=== PATIENT | female | born 1995 | race African-American/Black ===

== ENCOUNTER 2024-07-06 22:29 | Emergency (ER) | payer OTHER, MEDICAID, SELFPAY ==
[2024-07-06 22:34] VITALS: BP 128/85; PULSE 88; RESP 16; TEMP 36.6; O2SAT 98; BMI 38.4
--- OUTSIDE RECORDS SUMMARY | 2024-07-06 23:33 | XMS_ITS | Clinical Summary ---
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 Arabic, Mediterranean, or background): MCV less than 80: No Neural tube defect (Meningomyelocele, Spina bifida, or Anencephaly): No Congenital heart defect: No Down syndrome: No Floyd-Sachs (Ashkenazi Jain, Cajun, Chinese [place]): No Oumou disease (Ashkenazi Jain): No Familial dysautonomia (Ashkenazi Jain): No Sickle cell disease or trait (): No Hemophilia or other blood disorders: No Muscular dystrophy: No Cystic fibrosis: No [place]'s chorea: No Intellectual disability and/or autism: No Other inherited genetic or chromosomal disorder: No Maternal metabolic disorder (eg. Type 1 diabetes, PKU): No Patient or baby's father had child with defects not listed above: No Recurrent loss, or a stillbirth: No Medications (including supplements, vitamins, herbs, or OTC drugs)/illicit/recreational drugs/alcohol since last menstrual period: No CURRENT MEDICATIONS: Current Outpatient Medications Medication Sig blood sugar diagnostic (Blood Glucose Test) strip Test 1 times per day. blood-glucose meter Glucometer covered by patient insurance. EPINEPHrine (EpiPen) 0.3 mg/0.3 mL injection Inject 0.3 mg intramuscular one time if needed for Allergic Reaction for up to 1 dose. Emerging Travelyle Christine 3 Plus Sensor for continuous blood glucose monitor (CGM) As directed 1 Each one time. To be used to read blood sugars, follow global consumer sector vice president directions. lancets As directed. Test 1 times per day. metFORMIN 500 mg tablet Take 500 mg by mouth two times daily. vit [id number] ( Vitamin) 27 mg iron- 800 mcg tab Take by mouth. No current facility-administered medications for this visit. Medications have been reviewed by me and are current to the best of my knowledge and ability. ALLERGIES: Crab, Lobster, Shrimp, Dog dander, and Milk OBJECTIVE: LMP 04/21/2024 (Exact Date) Yes No results found for: PREGURINE ASSESSMENT/PLAN: ICD-10-CM 1. Supervision of high risk , unspecified, first trimester (HC) O09.91 EDUCATION/PATIENT INSTRUCTIONS - Advised patient to start/continue vitamin. - Discussed risk of using alcohol, tobacco, other drugs in . - Discussed healthy lifestyle in . - Provided copy of Beginnings book and book inserts, discussed [id number] medications, and follow up. - Encouraged patient to call clinic at [phone] with any vaginal bleeding, fluid leaking from vagina, severe abdominal pain, nausea with severe vomiting, fever higher than 100.4F, painful urination, headache not relieved by Tylenol, or other concerns - labs completed with today's visit. - Patient informed to schedule 1st trimester dating ultrasound between 7-10 weeks. - Initial OB appointment with FP/OB scheduled. COVID-19 vaccine discussion to be completed at this visit. Future Appointments Date Time Provider Department Center 07/17/2024 10:00 AM [facility] Marisol Leggett RN .................... 06/20/2024 1:37 PM Last Filed Vital Signs Vital Sign Reading Time Taken Comments Blood Pressure 100/60 06/10/2023 9:16 AM CDT Pulse 77 06/10/2023 9:16 AM CDT Temperature 36.5 C (97.7 F) 04/29/2023 9:09 AM CDT Respiratory Rate 16 04/29/2023 9:09 AM CDT Oxygen Saturation 95% 04/29/2023 9:09 AM CDT Inhaled Oxygen Concentration - - Weight 111.2 kg (245 lb 3.2 oz) 06/20/2024 1:30 PM CDT Height 169 cm (5' 6.54) 06/20/2024 1:30 PM CDT Body Mass Index 38.94 06/20/2024 1:30 PM CDT Plan of Treatment Upcoming Encounters Date Type Department Care Team (Late st Contact Info) Description 07/17/2024 10:00 AM CDT OB Encounter [facility] [address] [place] [address] Ann-Marie Wright MD [address] [place] [address] Health Maintenance Due Date Last Done Comments BMI (ht and wt on same day) for age 18+ 06/09/2024 06/10/2023, 10/01/2022, 01/23/2022, Additional history exists Influenza Vaccine (Season Ended) 2024 11/23/2022, 01/20/2022, 12/30/2021, Additional history exists RSV vaccine for adults or (1 - Risk 1-dose series) 12/01/2024 Depression screening for age 12+ 06/20/2025 06/21/19 25 Pap test for age 21-65 01/23/2027 , 01/23/2022, 01/29/2019 (Completed outside of [facility]) Tetanus booster 04/03/2030 04/03/2020, 09/16, 02/15/2011, Additional history exists Hepatitis B series for 19+ Completed 05/03, 11/12/2011, 10/09/2011 Tdap Completed 04/03/2020, 09/16, 02/15/2011 Pneumococcal series for age 6-49 Completed 08/13/19 23 COVID-19 vaccine series Completed 06/07/19, 09/18/2021, 08/13/2020, Additional history exists HIV for age 15-65 Completed 06/20/2024, , 11/23/2019 Hepatitis C screening for ag e 18-79 Completed 06/20/2024, 10/26/2022, 11/23/2019 Goals Goal Patient Goal Type Associated Problems Recent Progress Patient-Stated? Author Food - Increase security Diet No Joe Pina Note: Goal identified during: Initial Screening Status: Resolved, Result: Resolved Barriers to goal achievement: low income and DHS error on application Patient steps toward goal achievement: wait for call back from [facility] now that it is escalated Navigator steps to support goal achievement: check back Wednesday after 10am to confirm problem resolved Proposed timeline for goal completion: 1 month Notes: patient is now familiar with food shelf resources and is not eligible for SNAP due to spouse income being too high Date of follow up: NA Transportation - Increase reliability General No Joe Pina Note: Goal identified during: Initial Screening Status: Resolved, Result: Resolved Barriers to goal achievement: low income Patient steps toward goal achievement: [facility] Navigator steps to support goal achievement: talk juan about barriers and needs Proposed timeline for goal completion: 1 month Notes: client expressed no longer having trouble with this need Date of follow up: NA Procedures Procedure Name Priority Date/Time Associated Diagnosis Comments US OB 1ST TRI SINGLE TA Routine 07/05/2024 1:07 PM CDT Supervision of high risk , unspecified, first trimester (HC) TYPE & SCREEN Routine 06/20/2024 2:23 PM CDT Supervision of high risk , unspecified, first trimester (HC) TREPONEMA PALLIDUM Routine 06/20/2024 2: 23 PM CDT Supervision of high risk , unspecified, first trimester (HC) URINE CULTURE Routine 06/20/2024 2:23 PM CDT Supervision of high risk , unspecified, first trimester (HC) ANTI HIV 1/2 Routine 06/20/2024 2:23 PM CDT Supervision of high risk , unspecified, first trimester (HC) RUBELLA IMMUNE STATUS Routine 06/20/2024 2:23 PM CDT Supervision of high risk , unspecified, first trimester (HC) HBSAG (HBS) Routine 06/20/2024 2:23 PM CDT Supervision of high risk , unspecified, first trimester (HC) ANTI HCV Routine 06/20/2024 2:23 PM CDT Supervision of high risk , unspecified, first trimester (HC) HPV HIGH RISK Routine 01/23/2022 1:30 PM MACHINE BENDER Cervical cancer screening from Last 3 Months or Most Recently Relevant to Health Maintenance Results * US 1ST TRIMESTER (< 14 weeks) [77045.0] (07/05/2024 1:07 PM CDT) Anatomical Region Laterality Modality , 1ST TRIMESTER Ultrasound 07/05/2024 3:03 PM CDT Impressions 07/05/2024 3:03 PM CDT Normal first trimester OB ultrasound exam. Gestational age calculated at 8 weeks 0 days with a sonographic due date of 02/14/2025. Dictated by Flash Cristina MD @ 07/05/2024 3:03:12 PM (Electronically Signed) Narrative 07/05/2024 3:03 PM CDT For Patients: As a result of the Cures Act, medical imaging exams and procedure reports are released immediately into your electronic medical record. You may view this report before your referring provider. If you have questions, please contact your health care provider. INDICATION: First trimester scan, establish dates. COMPARISON: None. TECHNIQUE: Real-time manrique-scale imaging of the pelvis was performed transabdominal. FINDINGS: Sonographic imaging demonstrates a single living intrauterine gestation. The embryo demonstrates a regular cardiac rate measuring 161 beats per minute. The embryo`s crown-rump length measurement of 1.5 cm corresponds to a gestational age of 8 weeks 0 days with a sonographic due date of 02/14/2025. There is a normal-appearing yolk sac. There are no gross abnormalities noted within the embryo at this early state of development. The gestational sac has a normal appearance. There is no evidence of a perigestational hemorrhage. The amount of fluid within the sac appears appropriate for gestational age. The cervix is closed. The myometrium appears normal. The ovaries are of normal size. There are no suspicious fluid collections noted in the cul-de-sac. Procedure Note Flash Cristina MD - 07/05/2024 For Patients: As a result of the Cures Act, medical imagingexams and procedure reports are released immediately into your electronicmedical record. You may view this report before your referring provider.If you have questions, please contact your health care provider. INDICATION: First trimester scan, establish dates. COMPARISON: None. TECHNIQUE: Real-time manrique-scale imaging of the pelvis was performed transabdominal. FINDINGS: Sonographic imaging demonstrates a single living intrauterine gestation.The embryo demonstrates a regular cardiac rate measuring 161 beats perminute. The embryo`s crown-rump length measurement of 1.5 cm correspondsto a gestational age of 8 weeks 0 days with a sonographic due date of02/14/2025. There is a normal-appearing yolk sac. There are no grossabnormalities noted within the embryo at this early state of development.The gestational sac has a normal appearance. There is no evidence of aperigestational hemorrhage. The amount of fluid within the sac appearsappropriate for gestational age. The cervix is closed. The myometrium appears normal. The ovaries are ofnormal size. There are no suspicious fluid collections noted in [id number]-[id number]. IMPRESSION: Normal first trimester OB ultrasound exam. Gestational age calculated at8 weeks 0 days with a sonographic due date of 02/14/2025. Dictated by Flash Cristina MD @ 07/05/2024 3:03:12 PM (Electronically Signed) us Ann-Marie Wright MD Final Resul t * TREPONEMA PALLIDUM (06/20/2024 2:23 PM CDT) TREPONEMA PALLIDUM Non-Reacti ve Non-Reacti ve 06/20/2024 11:00 PM CDT [facility] Blood BLOOD SPECIMEN / Unknown [facility] / Unknown 06/20/2024 2:23 PM CDT 06/20/2024 2:23 PM CDT Ann-Marie Wright MD SEND OUTS Final Resul t [facility] [address] [place] [address], * RUBELLA IMMUNE STATUS (06/20/2024 2:23 PM CDT) Pathologist [facility] RUBELLA AB (IGG), IMMUNE STATUS 2.38 Index [facility] Comment: Index Interpretation ----- <0.90 Not consistent with immunity 0.90-0.99 Equivocal > or = 1.00 Consistent with immunity The presence of rubella IgG antibody suggests immunization or past or current infection with rubella virus. Blood BLOOD SPECIMEN / Unknown 06/20/2024 2:23 PM CDT 06/20/2024 2:24 PM CDT Ann-Marie Wright MD SEND OUTS Final Resul t Performing Organization Address City/[facility] Co de Phone Number [facility] [address] [place] [address], [facility] [address] [place] [address] * TYPE AND SCREEN (06/20/2024 2:23 PM CDT) Pathologist [facility] ABORH A Rh Positive 06/21/2024 12:47 AM CDT [facility] B[facility] ANTIBODY SCREEN Negative Negative 06/21/2024 12:47 AM CDT [facility] B[facility]OD BANK SPECIMEN EXPIRATION DATE/TIME 06/23/24 23:59 06/21/2024 12:47 AM CDT [facility] Blood BLOOD SPECIMEN / Unknown [facility] / Unknown 06/20/2024 2:23 PM CDT 06/20/2024 2:23 PM CDT us Ann-Marie Wright MD BLOOD BANK Final Resul t [facility]OD BANK [address] [place] [id number], * HBSAG (HBS) (06/20/2024 2:23 PM CDT) HEPATITIS B SURFACE ANTIGEN NON-REACTI VE NON-REACTI VE [facility] Comment: For additional information, please refer to http://education.Acertiv/faq/PFW729 (This link is being provided for informational/ educational purposes only.) Blood BLOOD SPECIMEN / Unknown 06/20/2024 2:23 PM CDT 06/20/2024 2:24 PM CDT Ann-Marie Wright MD SEND OUTS Final Resul t Performing Organization Address City/[facility]/ZIP Co de Phone Number [facility] [address] [place] [address], [place] [phone] [facility] [address] [place] [address] * URINE CULTURE (06/20/2024 2:23 PM CDT) CULTURE <10,000 CFU/mL multiple organisms 06/22/2024 12:32 PM CDT [facility] Urine URINE SPECIMEN / Unknown Non-Blood / Unknown 06/20/2024 2:23 PM CDT 06/20/2024 2:23 PM CDT us Ann-Marie Wright MD MICROBIOLOGY Final Resul t [facility] [address] [place] [address], * ANTI HCV (06/20/2024 2:23 PM CDT) HEPATITIS C ANTIBODY NON-REACTI VE NON-REACT HARPER [facility] Comment: HCV antibody was non-reactive. There is no laboratory evidence of HCV infection. In most cases, no further action is required. However, if recent HCV exposure is suspected, a test for HCV RNA (test code 88789) is suggested. For additional information please refer to http://[employer].Acertiv/faq/QUG84p9 (This link is being provided for informational/ educational purposes only.) Blood BLOOD SPECIMEN / Unknown 06/20/2024 2:23 PM CDT 06/20/2024 2:24 PM CDT us Ann-Marie Wright MD SEND OUTS Final Resul t [facility] [address] [place] [address], [facility] [address] [place] [address] * ANTI HIV 1/2 (06/20/2024 2:23 PM CDT) Pathologist [facility] HIV AG/AB, 4TH GEN NON-REACT HARPER NON-REACT HARPER [facility] Comment: HIV-1 antigen and HIV-1/HIV-2 antibodies were not detected. There is no laboratory evidence of HIV infection. PLEASE NOTE: This information has been disclosed to you from records whose confidentiality may be protected by state law. If your state requires such protection, then the state law prohibits you from making any further disclosure of the information without the specific written consent of the person to whom it pertains, or as otherwise permitted by law. A general authorization for the release of medical or other information is NOT sufficient for this purpose. For additional information please refer to http://[employer].Acertiv/faq/YVJ945 (This link is being provided for informational/ educational purposes only.) The performance of this assay has not been clinically validated in patients less than 2 years old. Blood BLOOD SPECIMEN / Unknown 06/20/2024 2:23 PM CDT 06/20/2024 2:24 PM CDT Ann-Marie Wright MD SEND OUTS Final Resul t Performing Organization Address City/[facility]/ZIP Co de Phone Number [facility] [address] [place] [address], [facility] [address] [place] [address] * HPV HIGH RISK (01/23/2022 1:30 PM MACHINE BENDER) TYPE 16 Negative Negative 01/27/2022 5:07 PM MACHINE BENDER [facility] TYPE 18 Negative Negative 01/27/2022 5:07 PM MACHINE BENDER [facility] OTHER HIGH RISK TYPES Negative Negative 01/27/2022 5:07 PM MACHINE BENDER [facility] Other (Cervical) Non-Blood / Unknown 01/23/2022 1:30 PM MACHINE BENDER 01/26/2022 2:44 PM MACHINE BENDER Narrative [facility] - 01/27/2022 5:07 PM MACHINE BENDER HPV types 16, 18, 31, 33, 35, 39, 45, 51, 52, 56, 58, 59, 66 and 68 DNA were undetectable or below the pre-set threshold. Methodology: Israel Ronda 4800 HPV Test us Lynn Soliz SAND MILL OPERATOR MICROBIOLOGY Final Re sult [facility] [address] [place] [address], [place] from Last 3 Months or Most Recently Relevant to Health Maintenance Insurance [facility] Advance Directives * Full Code (Latest Code Status on File) Date Activated Date Inactivated Comments 04/26/2023 7:58 PM 04/29/2023 2:39 PM Question Answer Comments Code Status Discussion: Reviewed Preferences * Full Code Date Activated Date Inactivated Comments 06/15/2020 6:26 PM 06/18/2020 1:41 PM Question Answer Comments Code Status Discussion: Not Discussed Care Teams Planning Director Relationship Specialty Start Date End Date Lynn Soliz SAND MILL OPERATOR [address] [place] [address] PCP - General Nurse Practitioner - Family 12/12/20 Thuy Angel RN Tribal Council Member Registered Nurse 05/20/20 Flash Saez MD [address] [place] [address] [address] Referring Provider Obstetrics and Gynecology 10/26/22
--- NOTE | 2024-07-06 23:52 | ED_ITS ---
HPI - General Adult General Chief complaint: Abdominal Pain Stated complaint: Left abdominal pain, 8 weeks , type 2 DM Time Seen by Provider: 07/06/24 22:44 History of Present Illness HPI narrative: This 29-year-old female comes in reporting pain in her left lower anterior ribs that started this afternoon. She states that the pain is rather constant and is reproduced with certain positions and maneuvers. She does not report any injury event or strenuous activity recently. She states that she is 8 weeks . She did have an ultrasound yesterday showing and intrauterine gestational sac. She does not report any shortness of breath. Related Data Home Medications ?Medication ?Instructions ?Recorded ?Confirmed metformin 500 mg tablet 500 mg PO BID 07/06/2407/06 Previous Rx's ?Medication ?Instructions ?Recorded ketorolac 10 mg tablet 10 mg PO TID 5 days #15 tabs 07/06/24 Allergies Allergy/AdvReac Type Severity Reaction Status Date / Time shellfish derived Allergy Rash Verified 07/06/24 22:41 Review of Systems Status of ROS: Reports: 10 or more systems reviewed and unremarkable except as noted in History and below Narrative: Constitutional: No fevers, no weight gain or loss. Eyes: No discharge. No vision changes. HENT: No congestion, no sore throat, no ear pain. Cardiovascular: No palpitations. Respiratory: No shortness of breath, no wheezes, no cough. Gastrointestinal: No abdominal pain, no vomiting, no diarrhea. Genitourinary: No dysuria, no hematuria. Musculoskeletal: Normal range of motion. Skin: No rashes, no pruritis. Neurological: No dizziness, weakness, sensory change, speech change. Endo/Heme/Allergies: No bruising or bleeding. No polydipsia. Pysch: no suicidality, no anxiety, no insomnia. All other systems reviewed and are negative. Exam Narrative: Exam Narrative: Constitutional: Well-developed, well-nourished, no acute distress. HEENT: Normocephalic, atraumatic. Neck: Normal range of motion. Nontender. Supple. Heart: Regular. No murmurs. Normal rate. Intact distal pulses. Lungs: Clear to auscultation. No wheezes, rhonchi, or rales. Chest: Reproducible pain in the left lower anterior ribs. Abdomen: Normal bowel sounds. Nontender. No rebound tenderness. Genitalia: Deferred. Back: No midline tenderness. Normal range of motion. Extremities: Normal range of motion. No injury. Skin: Intact. No rash. Warm. No erythema or pallor. Neurologic: No altered sensation. No weakness. Alert and oriented. Psychiatric: No suicidality. No anxiety or depression. No insomnia. Nursing notes and vitals signs are reviewed. Const: Vital Signs, click to edit/add: Vital Signs - 24 hr 07/06/24 22:34 Temperature 98 F Pulse Rate [Pulse Oximeter] 88 Respiratory Rate 16 Blood Pressure [Le ft Upper Arm] 128/85 Pulse Oximetry 98 Oxygen Delivery Me thod Room Air Course Vital Signs Vital signs: Initial Vital Signs Temperature 98 F 07/06/24 22:34 Temperature Source Temporal Artery Scan 07/06/24 22:34 Pulse Rate 88 07/06/24 22:34 Respiratory Rate 16 07/06/24 22:34 Blood Pressure 128/85 07/06/24 22:34 Blood Pressure Mean 99 07/06/24 22:34 Blood Pressure Position Sitting 07/06/24 22:34 Pulse Oximetry 98 07/06/24 22:34 Oxygen Delivery Method Room Air 07/06/24 22:34 Vital Signs Temperature 98 F 07/06/24 22:34 Pulse Rate 88 07/06/24 22:34 Respiratory Rate 16 07/06/24 22:34 Blood Pressure 128/85 07/06/24 22:34 Pulse Oximetry 98 07/06/24 22:34 Oxygen Delivery Method Room Air 07/06/24 22:34 Temperature 98 F 07/06/24 22:34 Pulse Rate 88 07/06/24 22:34 Respiratory Rate 16 07/06/24 22:34 Blood Pressure 128/85 07/06/24 22:34 Pulse Oximetry 98 07/06/24 22:34 Oxygen Delivery Method Room Air 07/06/24 22:34 Discharge Plan Discharge Clinical Impression: Acute chest wall pain, Patient Disposition: Home, Self-Care Condition: Unchanged Additional Instructions: Take medication as prescribed and needed. Follow up with primary physicians as scheduled and needed. Return if worsening. Prescriptions: New ketorolac 10 mg tablet 10 mg PO TID 5 Days Qty: 15 0RF No Action metformin 500 mg tablet 500 mg PO BID Follow Up/Referrals: Provider,Not a Local [Primary Care Provider, Family Practice] Stand Alone Forms: [facility] Info Instructions Procedures Ultrasound Other exam #1: Anatomical areas examined: Left lower anterior ribs, trans abdominal pelvic assessment of . Indications: Left lower rib pain. Exam type: focused emergency ultrasound Description/findings: Left upper quadrant of the abdomen and left lower anterior ribs appear normal. Intrauterine appears to be appropriate for 8 weeks gestation. Impression: Intrauterine . Negative exam otherwise.
== END 2024-07-07 00:02 | disposition home or self-care (01) ==
PROVIDERS: Emergency Provider Emergency Medicine Emergency Medical Services
DX: R07.89 Other chest pain (principal); Z3A.08 8 weeks gestation of pregnancy
CPT/HCPCS: 76857; 99283; 99284

== ENCOUNTER 2025-01-29 16:42 | Outpatient (CLI) | payer OTHER, MEDICAID, SELFPAY ==
[2025-01-29 17:03] VITALS: BP 125/82; PULSE 86; PULSE 88; PULSE 93; O2SAT 94; O2SAT 97
[2025-01-29 17:08] VITALS: PULSE 90; O2SAT 97
[2025-01-29 17:13] VITALS: PULSE 93; O2SAT 98
--- NOTE | 2025-01-29 19:45 | PC.OBNST ---
NST Note NST Note Start: 01/29/25 16:54 Freq: ONCE Status: Active Protocol: Document 01/29/25 19:45 ALZ (Rec: 01/29/25 19:45 ALZ No Response) NST Note 3 Para (# of births) 2 EDC 02/14/25 Gestational Age In 37 Weeks & 5 Days Weeks & Days High Risk Factors Diabetes - Preexisting Type II Oral Hypoglycemics Patient Presented Contractions/cramping with Complaint(s) of Reactive Yes Appropriate for Yes Gestational Age DARELL Barakat RN Date 01/29/25 Reactive Yes Appropriate for Yes Gestational Age DARELL Kauffman RNC Date 01/29/25 OB NST charge Yes Complete NST Note Yes via Write Note The provider's electronic signature indicates the NST is reactive/appropriate for gestational age. *Note to provider: If an addendum is required, open the patient's chart and click on the note under the Nurse/Allied Health tab.
== END 2025-01-29 19:45 | disposition home or self-care (01) ==
LOC: OB OUT 16:43 → OB 16:47
PROVIDERS: Visit Provider Family Medicine
DX: O36.8330 Maternal care for abnormalities of the fetal heart rate or rhythm, third trimester, not applicable or unspecified (principal); O24.419 Gestational diabetes mellitus in pregnancy, unspecified control; Z3A.37 37 weeks gestation of pregnancy
CPT/HCPCS: 59025; G0463; A9270; J2270

== ENCOUNTER 2025-01-30 11:49 | Outpatient (CLI) | payer OTHER, MEDICAID, SELFPAY ==
[2025-01-30 12:00] VITALS: PULSE 95; O2SAT 98
[2025-01-30 12:05] VITALS: PULSE 93; O2SAT 97
[2025-01-30 12:08] VITALS: BP 119/72; PULSE 77; RESP 18; TEMP 36.8
[2025-01-30 12:10] VITALS: PULSE 87; O2SAT 98
[2025-01-30] MEDS: INSULIN ASPART 100 UNIT/ML 35 UNIT SUBCUT (13:46)
[2025-01-30 15:08] VITALS: PULSE 98; O2SAT 99
[2025-01-30 16:04] VITALS: BP 106/64; PULSE 88; PULSE 90; RESP 18; TEMP 36.4; O2SAT 95
--- NOTE | 2025-01-30 17:50 | PC.OBNST ---
NST Note NST Note Start: 01/30/25 11:56 Freq: ONCE Status: Active Protocol: Document 01/30/25 16:45 SRV (Rec: 01/30/25 17:41 SRV [id number]) NST Note 3 Para (# of births) 2 EDC 02/14/25 Gestational Age In 37 Weeks & 6 Days Weeks & Days High Risk Factors Diabetes - Preexisting Type II Insulin Patient Presented Other with Complaint(s) of Other Complaints Deceleration in clinic and BPP 07/23. In triage for 4 hours of monitoring Reactive Yes Appropriate for Yes Gestational Age DARELL Haider Date 01/30/25 Reactive Yes Appropriate for Yes Gestational Age DARELL Martínez Date 01/30/25 OB NST charge Yes Complete NST Note Yes via Write Note The provider's electronic signature indicates the NST is reactive/appropriate for gestational age. *Note to provider: If an addendum is required, open the patient's chart and click on the note under the Nurse/Allied Health tab.
== END 2025-01-30 17:10 | disposition home or self-care (01) ==
LOC: OB OUT 11:50 → OB 11:50
PROVIDERS: Visit Provider Family Medicine
DX: O36.8330 Maternal care for abnormalities of the fetal heart rate or rhythm, third trimester, not applicable or unspecified (principal); O24.419 Gestational diabetes mellitus in pregnancy, unspecified control; Z3A.37 37 weeks gestation of pregnancy
CPT/HCPCS: 59025; 82962; G0463

== ENCOUNTER 2025-02-06 16:39 | Inpatient (IN) | payer OTHER, MEDICAID, SELFPAY ==
[2025-02-06 16:53] VITALS: BMI 40.5
[2025-02-06 17:24] VITALS: BP 127/84; PULSE 74; RESP 18; TEMP 36.8
--- NOTE | 2025-02-06 17:45 | PM.OBHPLI ---
OB - H&P: HPI Labor/Induction History of Present Illness Time Seen by Provider: 17:45 Date Seen: 02/06/25 Chief Complaint: The patient is a 29 year old 3 para 2001 at 38.6 weeks gestation by LMP and consistent with 8 week ultrasound who presents for IOL for type 2 diabetes, obesity. Chief complaint: Type 2 DM : 3 Para: 2 Narrative: Marcia Eastman is a 29 year old female who presents for IOL for pregestational type 2 diabetes, obesity in . Patient is managed at the [facility] for her diabetes management. 30 units NPH in am, 8 units in PM 35, 40, 40 units of novolog for meals. She has had fair control, stating she is only high when she eats things she shouldn't. Weight gain has been 17 lbs States she is diet controlled when not . Is also on metformin bid She did have cake right before arriving for IOL. EFW 72 percentile, Abdominal circumference 96th percentile She has had some contractions, otherwise felt well. No headache, vision changes. no significant edema. History of Present Dating criteria: based on LMP (consistent with 8 week ultrasound) care: good care Ultrasounds: normal 1st trimester US and normal mid trimester US Abnormal ultrasound findings: Growth ultrasound: EFW 72 percentile, Abdominal circumference 96th percentile complications comment: type 2 diabetes Labs Blood type: A (+) positive Rubella: immune RPR/VDLR: nonreactive GBS status: negative HBsAG: negative Review of Systems Status of ROS: Reports: 10 or more systems reviewed and unremarkable except as noted in History and below Meds Home Medications and Allergies Home Medications ?Medication ?Instructions ?Recorded ?Confirmed ?Type metformin 500 mg tablet 500 mg PO BID 07/06/24 02/06/25 History aspirin 81 mg capsule 81 mg PO DAILY 01/29/25 02/06/25 History famotidine 10 mg tablet 10 mg PO .PRN 01/29/25 02/06/25 History magnesium 1 tab PO DAILY 01/29/25 02/06/25 History Vitamin 1 cap PO DAILY 01/30/25 02/06/25 History insulin aspart U-100 100 unit/mL 35 unit subcut AC 01/30/25 02/06/25 History (3 mL) subcutaneous pen Allergies Allergy/AdvReac Type Severity Reaction Status Date / Time shellfish derived Allergy Rash Verified 02/06/25 17:38 OB - H&P: Exam Physical Exam: Vital signs: Pulse BP 74 127/84 02/06/25 17:24 02/06/25 17:24 Constitutional: Constitutional: no acute distress Routine HEENT Exam: Head: Present atraumatic Routine Neck Exam: Neck: Present full ROM Detailed Neck Exam: Thyroids: Thyroid: Present normal Detailed Chest Wall Exam: Chest wall: Present increased AP diameter Routine Respiratory Exam: Respiratory: Present CTA bilaterally Routine Cardiovascular Exam: Cardiovascular: RRR, S1 and S2 Detailed Labor and Delivery Exam: Patient Gravid: yes Dilation (cm): 2 Effacement (%): 50 Cervix position: mid Consistency: medium Cervical ripeness score: 5 Tachysystole: No Contraction intensity: Mild Fetus (Single): Station: -2 Heart Rate Baseline: 140 Monitor Accelerations: Present Monitor Decelerations: None Vp Of Customer Experience Strategy Variability: Moderate (6-25) Routine Back/Spine/Pelvis Exam: Back/Spine: full ROM Routine Skin Exam: Present intact Routine Neurological Exam: Present alert and oriented X3 Routine Psychiatric Exam: Present normal affect OB - Problem Based A/P Additional Plan (1) Term : Problem details: 38w6d. Placed a cook with 60 and 60 in each balloon, tolerated well. Status: Acute Plan: - pitocin at midnight. (2) Type 2 diabetes mellitus: Problem details: Patient has type 2 diabetes, on metformin bid, NPH, Meal time insulin. Status: Acute Plan: - will hold metformin - will continue 8 units of NPH given such a small dose at bedtime - continue meal time insulin as given at home. - ssi for correction PRN. - reassess NPH dose in the morning. Plan - IOL - glucose control as above - desires epidural - anticipate Delivery/Labor/Induction Plan Plan: induction Induction method: Intracervical balloon catheter
[2025-02-06] MEDS: INSULIN ASPART 100 UNIT/ML SUBCUT (17:56)
[2025-02-06] MEDS: INSULIN NPH 100 UNIT/ML 8 UNIT SUBCUT (20:14)
[2025-02-06 21:25] LABS: Hematocrit* 39.9 % (33.0-51.0); Hemoglobin* 13.2 gm/dL (12.0-16.0); Immature Granulocytes Pct Auto 0.2 %; Mean Corpuscular HGB Conc 33 gm/dL (32-36); Mean Corpuscular Hemoglobin 27 pg (26-34); Mean Corpuscular Volume 82 fL (80-100); RDW Coefficient of Variation % 14.0 % (11.5-15.5); Red Blood Count* 4.87 m/uL (4.00-5.20); White Blood Count* 11.27 K/uL (4.50-11.00)
[2025-02-06 21:37] LABS: Immature Granulocytes Abs Auto 0.00 K/uL (0.00-0.30); Lymphocytes Absolute Auto 3.10 K/uL (0.90-2.90); Slide Review Reflex No
[2025-02-06 21:41] VITALS: BP 107/63; PULSE 61
[2025-02-06 21:43] VITALS: TEMP 36.6
[2025-02-06 22:12] LABS: Amnisure Rom* POSITIVE
[2025-02-07] VITALS (45 sets, daily range): BP systolic 90–140; BP diastolic 53–85; PULSE 56–96; RESP 16; TEMP 36.5–36.9; O2SAT 96–100
[2025-02-07] MEDS: LACTATED RINGERS 1000 ML 1,000 ML 125 ML IV ×2 (00:06→03:01)
[2025-02-07] MEDS: OXYTOCIN 30 unit/500 ML in NS 30 UNIT/500 ML BAG IVPB (00:06)
[2025-02-07] MEDS: CALCIUM CARBONATE 500 MG CHEW PO ×2 (00:10→04:17)
[2025-02-07] MEDS: PHENYLEPHRINE 100 MCG/ML SYRINGE IVP ×5 (02:49→06:13)
[2025-02-07] MEDS: ROPIVACAINE 0.2% 100 ml 100 ML 12 MG EPIDURAL (02:53)
[2025-02-07] MEDS: LIDOCAINE 2% (PF) 5 ML VIAL EPIDURAL (03:06)
--- NOTE | 2025-02-07 05:13 | P.OBPN_ITS ---
Subjective Time Seen by Provider: 05:13 Date Seen: 02/07/25 Narrative: Interval events: Patient had SROM at 9:45 PM on 02/06. Cook was removed. Pitocin was started at 11:45 and titrated. Patient received epidural for analgesia with good results when 6 cm. FHT showed decreased variability and late decels, blood sugar was 61, treated and pitocin turned off. Pitocin was restarted at 1, baby is having variable/early decels with contractions, but baseline is improved. Objective Exam: Resting comfortably, NAD Vital Signs: Last Vital Signs Temp 98.3 F 02/07/25 03:43 Pulse 77 02/07/25 05:11 Resp 18 02/06/25 17:24 BP 114/73 02/07/25 05:11 Pulse Ox 99 02/07/25 03:09 Pelvic Exam Dilation (cm): 7 Effacement (%): 90 Station: -1 Contractions Monitor mode: External Contraction Frequency: 2-5 Contraction pattern: Irregular Contraction intensity: Strong/Firm Pitocin Rate (mU/min): 1 Assessment Assessment: induction ongoing Station: -1 Amniotic Membrane Status: SROM Status: Category ll Heart Rate Baseline: 140 Staffing Director Variability: Moderate (6-25) Monitor Accelerations: Present Monitor Decelerations: Variable Plan Plan: - Frequent position changes, ongoing heart monitoring - titrate pitocin as able - anticipate
--- NOTE | 2025-02-07 07:06 | PM.ANBPRC ---
PFSH PFSH Social History What is your current living situation?: I presently have a place to live Problems where you live: no known problems In the past 12 months, utilities in danger of being shut off: no In past 12 months, lack of transportation kept you from medical appts, meetings, work, or getting things needed for daily living: no In the past 12 mos, have been you worried that your food would run out before you had money to buy more?: never true In the past 12 mos, the food you bought just didn't last and you didn't have money to buy more?: never true Smoking Status: Never smoker How often does anyone, including family, friends and others, physically hurt you: never How often does anyone, including family, friends and others, insult or talk down to you: never How often does anyone, including family, friends and others, threaten you with harm: never How often does anyone, including family, friends and others, scream or curse at you: never Meds Home Medications and Allergies Home Medications ?Medication ?Instructions ?Recorded ?Confirmed ?Type metformin 500 mg tablet 500 mg PO BID 07/06/24 02/06/25 History aspirin 81 mg capsule 81 mg PO DAILY 01/29/25 02/06/25 History famotidine 10 mg tablet 10 mg PO .PRN 01/29/25 02/06/25 History magnesium 1 tab PO DAILY 01/29/25 02/06/25 History Vitamin 1 cap PO DAILY 01/30/25 02/06/25 History insulin aspart U-100 100 unit/mL 35 unit subcut AC 01/30/25 02/06/25 History (3 mL) subcutaneous pen Allergies Allergy/AdvReac Type Severity Reaction Status Date / Time shellfish derived Allergy Rash Verified 02/06/25 17:38 Results Labs Labs: Laboratory Results - last 24 hr 02/06/25 02/06/25 02/06/25 17:04 20:50 21:56 WBC 11.27 H RBC 4.87 Hgb 13.2 Hct 39.9 MCV 82 MCH 27 MCHC 33 RDW Coeff of Wan 14.0 Plt Count 248 Neut % (Auto) 64.1 Lymph % (Auto) 27.4 [place] % (Auto) 6.7 Eos % (Auto) 1.3 Baso % (Auto) 0.3 Neut # (Auto) 7.20 H Lymph # (Auto) 3.10 H [place] # (Auto) 0.80 Eos # (Auto) 0.10 Baso # (Auto) 0.00 Abs Immat Gran (auto) 0.00 Imm/Tot Granulo (auto) 0.2 Membrane Rupture POSITIVE Blood Type A Positive Antibody Screen NEGATIVE Vital Signs Vital Signs: Last Vital Signs Temp 98.4 F 02/07/25 06:10 Pulse 67 02/07/25 06:57 Resp 18 02/06/25 17:24 BP 122/63 02/07/25 06:57 Pulse Ox 99 02/07/25 03:09 Weight: 117.435 kg Height: 170.18 cm Anesthesia Procedures Epidural Insertion Patient Location: OB Start Time: 02:00 Stop Time: 03:00 Start Date: 02/07/25 Stop Date: 02/07/25 Reason for Block: procedure for pain Patient Position: sitting Performed By: Rupali Jean Preanesthetic Checklist: IV checked, risks and benefits discussed, monitors and equipment checked, pre-op evaluation, timeout performed and anesthesia consent Prep: chlorhexidine gluconate Monitoring: blood pressure monitoring, continuous pulse oximetry and heart rate Approach: midline Vertebral Space: lumbar (1-5) Epidural Technique: HOANG saline Needle Type: Tuohy needle Injection Technique: continuous catheter (continuous catheter) Needle gauge: 17 Needle Length (cm): 10 cm Needle Insertion Depth (cm): 8 Catheter Gauge: 19 Catheter Type: multi-orifice Catheter at skin depth (cm): 15 Test Dose Result: negative and lidocaine 1.5% with epinephrine 1 to 200,000
--- NOTE | 2025-02-07 07:08 | W.PM.OBVAGDE ---
OB Procedure Vag Delivery Mother Details Mother Details: The patient is a 29 year-old, 3, Para 2, admitted on 02/06/25 at 38.6 Days gestation for IOL for type 2 diabetes. : 3 Para: 2 Weeks Gestation: 39 Admission Date: 02/06/25 Additional Details Amniotic Membrane Status: SROM Amniotic Membrane Rupture Date: 02/06/25 Amniotic Membrane Rupture Time: 21:43 Amniotic Membrane Fluid Description: Clear Analgesia/Anesthesia Type: Epidural Waterbirth: No Pitcoin: Yes Intrapartal Events: Labor Induction Induction Method: Intracervical balloon catheter and per pitocin protocol Labor Onset: 01:43 Complete: 16:16 Pushin:25 Heart: heart tones during second stage were category 2. Had deep variables with contractions, good variability between contractions. Delivery Details Delivery Date: 02/07/25 Delivery Time: 06:30 Route of delivery: Gender: Male Viability: Alive; Heart Rate Present Position at Delivery: OA Delivery Details: Patient was admitted for IOL for type 2 diabetes. had cook cathter placed, had SROM and cook had to be removed. Pitocin was started and titrated. had to be turned off for recurrent late decels (which were likely due to hypoglycemia). Progressed and became complete. Pushed very effectively. Delivered via spontaneous vaginal delivery. Nuchal cord x 1 was delivered through. Infant was placed on maternal abdomen.? Cord was clamped and cut after a 30-60 second delay. Nose and mouth were bulb suctioned.? Infant weight pending. Baby was taken to warmer for resuscitation. 1 Minute Interval Total Score: 4 5 Minute Interval Total Score: 9 Additional Details Shoulder Dystocia: No Placenta Delivery Time: 06:38 Placental Delivery Description: Spontaneous Procedure Done: Global Blood Loss: 699 Laceration: None Blood Loss Measurement Type: QBL (699) Cord Vessel Description: 3 Vessels Event Summary Status: Mother and infant were stable after delivery. QBL was from weight of pad, may have had some fluid. There was a bit of delay of management of 2nd stage as I went to warmer with infant, which I think contributed to bleeding. Pitocin was given. After delivery of placenta there was no additional bleeding. Disposition: no change
[2025-02-07] MEDS: ACETAMINOPHEN 500 MG TABLET 1000 MG PO ×2 (10:26→16:42)
[2025-02-07] MEDS: METFORMIN ER 500 MG PO ×2 (11:05→18:13)
[2025-02-07] MEDS: IBUPROFEN 600 MG TABLET PO ×2 (11:23→19:54)
[2025-02-07] MEDS: DOCUSATE SODIUM 100 MG CAPSULE PO (16:42)
[2025-02-08 00:40] VITALS: BP 111/74; PULSE 81; RESP 16; TEMP 37.1; O2SAT 97
[2025-02-08] MEDS: ACETAMINOPHEN 500 MG TABLET 1000 MG PO ×2 (00:47→09:46)
[2025-02-08 06:22] VITALS: BP 116/73; PULSE 83; RESP 16; TEMP 36.7; O2SAT 97
[2025-02-08] MEDS: IBUPROFEN 600 MG TABLET PO (07:11)
[2025-02-08 07:13] LABS: Hemoglobin* 12.4 gm/dL (12.0-16.0)
[2025-02-08 07:57] VITALS: BP 127/83; PULSE 83; RESP 16; TEMP 36.3; O2SAT 98
[2025-02-08] MEDS: METFORMIN ER 500 MG PO (08:00)
[2025-02-08] MEDS: DOCUSATE SODIUM 100 MG CAPSULE PO (08:00)
--- NOTE | 2025-02-08 10:07 | P.DS_ITS ---
DS: Providers Provider Date Seen: 02/08/25 Date of admission: 02/06/25 16:39 Primary care physician: Not a Local Provider Admitting Clinician: Dania Haider MD Attending Physician on discharge: Dania Haider MD Date of Discharge: 02/08/25 DS: Diagnosis Discharge Diagnosis (1) Vaginal delivery: Status: Acute (2) Type 2 diabetes mellitus: Status: Acute Problem details: Patient has type 2 diabetes, on metformin bid, NPH, Meal time insulin. Exam Const: Vital Signs, click to edit/add: Vital Signs - 24 hr 02/07/25 12:14 02/07/25 16:38 02/07/25 20:24 Temperature 97.7 F 97.7 F 98.0 F Pulse Rate [Pulse Oximeter] 76 85 84 Respiratory Rate 16 16 16 Blood Pressure [Le ft Arm] 119/75 110/75 121/80 Pulse Oximetry 96 97 97 Oxygen Delivery Me thod Room Air Room Air Room Air 02/08/25 00:40 02/08/25 06:22 02/08/25 07:57 Temperature 98.7 F 98.1 F 97.4 F L Pulse Rate [Pulse Oximeter] 81 83 83 Respiratory Rate 16 16 16 Blood Pressure [Le ft Arm] 111/74 116/73 127/83 Pulse Oximetry 97 97 98 Oxygen Delivery Me thod Room Air Room Air Room Air Common normals: no apparent distress, average body habitus and oriented x3 Resp: Common normals: normal respiratory effort and no retractions Cardio: Common normals: regular rate and regular rhythm Rate: regular rate Rhythm: regular rhythm : Uterus: U/U and firm Extremity: Common normals: normal to inspection and no pedal edema Neuro: Common normals: oriented x3 Psych: Common normals: thought process normal, cooperative, affect normal and speech normal Speech: normal speech Thought process: normal thought process OB - DS: Summary Hospital Course Hospital Course: The patient is a 29 year old G 3 P 3003 at 39 weeks gestation that was admitted to the Center on 02/06/25 for IOL for DMII on insulin with fair control. She had an uncomplicated vaginal delivery. She delivered a viable male infant. She is breast feeding. the patient has done well. Peripartum Data delivery method: Vaginal complications: none Infant Gender: Male Discharge Plan: Home Status at Discharge Functional status at discharge: independent ambulation Overall status at discharge: patient is progressing back to baseline Time Spent with Patient Time attestation: Total time spent providing and/or coordinating discharge services: Time spent: Less than 30 minutes Discharge Plan Discharge Disposition: Home, Self-Care Date of Admission: 02/06/25 16:39 Consulting Providers: Christy Manning Primary Care Provider: Provider,Not a Local Condition: Improved Anticipated Discharge Date/Time: 02/08/25 10:10 Discharge Medications: Continued Vitamin 1 cap PO DAILY metformin 500 mg tablet 500 mg PO BID aspirin 81 mg capsule 81 mg PO DAILY famotidine 10 mg tablet 10 mg PO .PRN magnesium Tablet 1 tab PO DAILY Discontinued insulin aspart U-100 100 unit/mL (3 mL) insulin pen 35 unit SUBCUT AC Patient Comments: [NO ORIGINAL SIG] Rx Instructions: 35 units AM, 40 units lunch, 40 units dinner Discharge Orders: Discharge Order (Routine); Ordered 02/08/25 Ordered By: Christy aMnning Patient Education: OB Vaginal/Breast Feeding Activity Level: No Restrictions Activity Detail: nothing per vagina x6 weeks Discharge Diet: Diabetic Follow Up Appointments: Ann-Marie Wright MD [Staff Physician, Obstetrics] Referral Note: in 6 weeks Provider,Not a Local [Primary Care Provider, Family Practice] Forms: [employer] Info Instructions
--- NOTE | 2025-02-08 23:10 | PM.ANPOST ---
Post Anesthesia Note Post Anesthesia Note Patient seen: Inpatient Respiratory Status: adequate Cardiovascular Status: adequate Mental Status: baseline Pain: adequate Temp: baseline Anesthetic awareness: N/A Complications: none Follow care: none
== END 2025-02-08 11:00 | disposition home or self-care (01) | DRG 807 ==
PROVIDERS: Admitting Provider Family Medicine; Visit Provider Family Medicine
DX: O24.12 Pre-existing type 2 diabetes mellitus, in childbirth (principal); Z37.0 Single live birth; Z79.4 Long term (current) use of insulin; Z79.84 Long term (current) use of oral hypoglycemic drugs; O99.214 Obesity complicating childbirth; E66.9 Obesity, unspecified; Z3A.38 38 weeks gestation of pregnancy
CPT/HCPCS: 01967; 36415; 59200; 84112; 85018; 85025; 86780; 86850; 86900; 86901; A9270; C1726; J2270; J2795; J7120